=== PATIENT | female | born 1950 | race Caucasian/White ===

== ENCOUNTER 2016-04-01 13:45 | Outpatient (CLI) | payer MEDICARE, BC | END 2016-04-01 13:46 | disposition home or self-care (01) | DX: Z12.31 Encounter for screening mammogram for malignant neoplasm of breast (principal); Z80.3 Family history of malignant neoplasm of breast ==

== ENCOUNTER 2016-04-01 13:46 | Outpatient (CLI) | payer MEDICARE, BC | END 2016-04-01 13:47 | disposition home or self-care (01) | DX: M85.89 Other specified disorders of bone density and structure, multiple sites (principal); Z78.0 Asymptomatic menopausal state ==

== ENCOUNTER 2017-05-18 14:10 | Outpatient (CLI) | payer MEDICARE, BC ==
--- NOTE | 2017-05-19 13:16 | Mammography Report ---
DIGITAL SCREENING MAMMOGRAM: 05/18/2017 CLINICAL INDICATION: A 67-year-old with family history of breast cancer, for screening. COMPARISON: 03/2016, 09/2012, 06/2011, 06/2010. TECHNIQUE: Routine CC and MLO projections were obtained of the breasts. Bilateral laterally exaggerated craniocaudal views. FINDINGS: Scattered fibroglandular tissue is present within the breasts. There are no dominant masses, suspicious microcalcifications, or secondary signs of malignancy. In comparison to the previous studies, there are no significant changes. ASSESSMENT: NO MAMMOGRAPHIC EVIDENCE OF MALIGNANCY. NO SIGNIFICANT INTERVAL CHANGES. RECOMMENDATION: Screening mammography is recommended annually. BIRADS category 1 - negative. STANDARD QUALIFYING STATEMENTS: 1. This examination was reviewed with the aid of Computed-Aided Detection (CAD). 2. A negative or benign imaging report should not delay biopsy if clinically suspicious findings are present. Consider surgical consultation if warranted. More than 5% of cancers are not identified by imaging. 3. Dense breasts may obscure an underlying neoplasm. TD: 05/19/2017 13:16
== END 2017-05-18 14:11 | disposition home or self-care (01) ==
LOC: DI.S 14:10
PROVIDERS: ATTEND Internal Medicine
DX: Z12.31 Encounter for screening mammogram for malignant neoplasm of breast (principal); Z80.3 Family history of malignant neoplasm of breast
CPT/HCPCS: 77067

== ENCOUNTER 2017-09-29 11:30 | Outpatient (CLI) | payer MEDICARE, BC ==
[2017-09-29 17:37] LABS: ALBUMIN 3.8 g/dL (3.2-5.5); ALBUMIN/GLOBULIN RATIO 1.3 (1.0-2.2); BILIRUBIN,TOTAL 1.5 mg/dL (0.2-1.0); CALCIUM 9.2 mg/dL (8.5-10.3); CREATININE 0.9 mg/dL (0.4-1.0); TOTAL PROTEIN 6.7 g/dL (6.7-8.2)
[2017-09-29 18:52] LABS: BASOPHILS # (AUTO) 0.1 10^3/uL (0.0-0.1); BASOPHILS % (AUTO) 0.8 %; EOSINOPHILS # (AUTO) 0.4 10^3/uL (0.0-0.7); EOSINOPHILS % (AUTO) 5.5 %; HGB - HEMOGLOBIN 13.7 g/dL (12.0-16.0); LYMPHOCYTES % (AUTO) 53.5 %; MEAN CORPUSCULAR HEMOGLOBIN 31.3 pg (27.0-31.0); MEAN CORPUSCULAR HGB CONC 33.2 g/dL (32.0-36.0); MEAN CORPUSCULAR VOLUME 94.3 fL (81.0-99.0); MEAN PLATELET VOLUME 8.6 fL (7.9-10.8); MONOCYTES # (AUTO) 0.3 10^3/uL (0.0-1.0); MONOCYTES % (AUTO) 4.6 %; NEUTROPHILS # (AUTO) 2.7 10^3/uL (1.5-6.6); NEUTROPHILS % (AUTO) 35.6 %; PLT - PLATELET COUNT 214 10^3/uL (130-450); RED BLOOD COUNT 4.37 10^6/uL (4.20-5.40); RED CELL DISTRIBUTION WIDTH 13.4 % (12.0-15.0); WHITE BLOOD COUNT 7.4 x10^3/uL (4.8-10.8)
== END 2017-09-29 11:31 | disposition home or self-care (01) ==
LOC: LAB.F 11:30
PROVIDERS: ATTEND Nurse Practitioner Primary Care
DX: E55.9 Vitamin D deficiency, unspecified (principal); Z13.0 Encounter for screening for diseases of the blood and blood-forming organs and certain disorders involving the immune mechanism; Z13.1 Encounter for screening for diabetes mellitus; Z13.29 Encounter for screening for other suspected endocrine disorder
CPT/HCPCS: 36415; 80053; 82306; 84443; 85025

== ENCOUNTER 2017-11-20 21:08 | Outpatient (CLI) | payer MEDICARE, BC ==
--- NOTE | 2017-11-20 23:58 | XRAY Report ---
Reason: Left wrist pain Procedure Date: 11/20/2017 Accession Number: [id number] / [id number] Procedure: XR - Wrist 4 View LT CPT Code: FULL RESULT: EXAM: LEFT WRIST RADIOGRAPHY EXAM DATE: 11/20/2017 09:25 PM. CLINICAL HISTORY: Left wrist pain after fall 2 days ago. COMPARISON: None. TECHNIQUE: 4 views. FINDINGS: Left dorsal distal radial cortical buckling, could represent an acute impacted fracture versus chronic bony deformity. MR or CT could further evaluate as clinically indicated. No subluxation. Moderate first carpometacarpal osteoarthritis. IMPRESSION: Left dorsal distal radial cortical buckling, could represent an acute impacted fracture versus chronic bony deformity. MR or CT could further evaluate as clinically indicated. Moderate first carpometacarpal osteoarthritis. RADIA
== END 2017-11-20 21:09 | disposition home or self-care (01) ==
LOC: DI 21:08
PROVIDERS: ATTEND Nurse Practitioner Family
DX: M18.12 Unilateral primary osteoarthritis of first carpometacarpal joint, left hand (principal); M25.532 Pain in left wrist

== ENCOUNTER 2018-05-16 08:00 | Outpatient (CLI) | payer MEDICARE, BC | END 2018-05-16 23:59 | disposition home or self-care (01) | LOC: LAB.R 08:00 | PROVIDERS: ATTEND Physician Assistant Medical | DX: N39.0 Urinary tract infection, site not specified (principal) | CPT/HCPCS: 87086 ==

== ENCOUNTER 2018-06-29 16:19 | Outpatient (CLI) | payer MEDICARE, BC | END 2018-06-29 23:59 | disposition home or self-care (01) | LOC: LAB.R 16:19 | PROVIDERS: ATTEND Obstetrics & Gynecology | DX: N89.8 Other specified noninflammatory disorders of vagina (principal) | CPT/HCPCS: 87480; 87510; 87660 ==

== ENCOUNTER 2018-10-02 18:47 | Outpatient (CLI) | payer MEDICARE, BC ==
--- NOTE | 2018-10-04 11:31 | Ultrasound Report ---
Reason: PELVIC MASS Procedure Date: 10/02/2018 Accession Number: [id number] / [id number] Procedure: US - Pelvic Complete CPT Code: FULL RESULT: EXAM: PELVIC ULTRASOUND EXAM DATE: 10/02/2018 07:07 PM. CLINICAL HISTORY: Pelvic mass. COMPARISON: None. TECHNIQUE: Realtime transabdominal pelvic scan performed to identify the uterus and adnexa and as an overview of other pelvic structures, with static image documentation. FINDINGS: Examination is limited by absence of transvaginal technique. Uterus: 7.1 x 3.2 x 5.0 cm, volume 59 cc. Anteverted position. On limited transabdominal evaluation, myometrial echotexture is heterogeneous with a large echogenic coarse shadowing foci measuring up to 2.1 cm, likely coarse calcifications which are most often associated with fibroids. Masses: No discrete fibroids are identified on the limited exam. Endometrium: 7 mm. The endometrium is overall not well seen due to absence of transvaginal technique and aforementioned calcific shadow is obscuring large portions. Cervix: Unremarkable. Right Ovary: 1.8 x 1.8 x 1.7 cm, volume 3 cc. Normal echotexture and blood flow. Left Ovary: 1.7 x 1.3 x 1.6 cm, volume 1.9 cc. Normal echotexture and blood flow. Free Fluid: None. Other: None. IMPRESSION: Uterine calcifications, possibly fibroids, limited evaluation. Poorly visualized endometrium with suggestion of a thickness of 0.7 cm which would be greater than expected for normal in the postmenopausal state. Recommendation: Given the provided history of a pelvic mass, the findings should be compared to any available outside imaging. Transvaginal ultrasound is recommended. Depending on the clinical scenario and workup to date, pelvic MRI with and without contrast and/or CT abdomen and pelvis with intravenous contrast if non-gynecologic origin is suspected may additionally be warranted. RADIA
== END 2018-10-02 18:48 | disposition home or self-care (01) ==
LOC: DI 18:47
PROVIDERS: ATTEND Family Medicine
DX: R19.00 Intra-abdominal and pelvic swelling, mass and lump, unspecified site (principal); N85.8 Other specified noninflammatory disorders of uterus
CPT/HCPCS: 76856

== ENCOUNTER 2021-05-19 10:38 | Outpatient (CLI) | payer MEDICARE, BC | END 2021-05-19 10:39 | disposition home or self-care (01) | LOC: DI 10:38 | PROVIDERS: ATTEND Internal Medicine Cardiovascular Disease | DX: R00.2 Palpitations (principal); I51.7 Cardiomegaly; I87.8 Other specified disorders of veins; I65.23 Occlusion and stenosis of bilateral carotid arteries; E04.1 Nontoxic single thyroid nodule | CPT/HCPCS: 93306; 93880 ==

== ENCOUNTER 2021-05-19 10:39 | Outpatient (CLI) | payer MEDICARE, BC ==
--- NOTE | 2021-05-19 15:28 | Ultrasound Report ---
PROCEDURE: Carotid Doppler Complete INDICATIONS: LEFT SIDED CAROTID BRUIT TECHNIQUE: Color and pulse Doppler interrogation was performed of both carotid systems, with image documentation and velocity measurements. COMPARISON: None. FINDINGS: There is a predominantly cystic right thyroid nodule measuring 2.5 x 3.4 x 1.4 cm. Right side: Brachial blood pressure: 126/83 mm Hg. Common carotid artery peak systolic velocity: 89 cm/sec. Internal carotid artery peak systolic velocity: 126 cm/sec. Internal carotid artery end diastolic velocity: 46 cm/sec. External carotid artery peak systolic velocity: 83 cm/sec. ICA/CCA peak systolic ratio: 1.4 . Mathews scale imaging description: Mild diffuse plaque Percent internal carotid artery stenosis: Less than 50% . Vertebral artery: Flow direction is antegrade. Left side: Brachial blood pressure: 123/71 mm Hg. Common carotid artery peak systolic velocity: 96 cm/sec. Internal carotid artery peak systolic velocity: 80 cm/sec. Internal carotid artery end diastolic velocity: 34 cm/sec. External carotid artery peak systolic velocity: 71 cm/sec. ICA/CCA peak systolic ratio: 0.8 . Mathews scale imaging description: Mild diffuse plaque Percent internal carotid artery stenosis: Less than 50% . Vertebral artery: Flow direction is antegrade. IMPRESSION: 1. Mild diffuse plaque in both carotid arteries with no hemodynamically significant stenosis. 2. A predominantly cystic right thyroid nodule measures 2.5 x 3.4 x 1.4 cm. Recommend dedicated thyro id ultrasound. The estimate of stenosis included in the report of the imaging study was calculated using the NASCET method Reviewed by: Calderon Jain on 05/19/2021 3:26 PM PST Approved by: Calderon Jain on 05/19/2021 3:26 PM PST Station ID: [id number]
== END 2021-05-19 10:40 | disposition home or self-care (01) ==
LOC: DI 10:39
PROVIDERS: ATTEND Family Medicine
DX: I65.23 Occlusion and stenosis of bilateral carotid arteries (principal); E04.1 Nontoxic single thyroid nodule
CPT/HCPCS: 93880

== ENCOUNTER 2023-02-08 09:10 | Outpatient (CLI) | payer MEDICARE, BC | END 2023-02-08 09:11 | disposition critical access hospital (66) | LOC: EMS 09:10 | DX: R42 Dizziness and giddiness (principal); R11.0 Nausea; R06.02 Shortness of breath | CPT/HCPCS: A0425; A0429 ==

== ENCOUNTER 2023-02-08 09:45 | Emergency (ER) | payer MEDICARE, BC ==
[2023-02-08 10:44] LABS: BASOPHILS # (AUTO) 0.1 10^3/uL (0.0-0.1); BASOPHILS % (AUTO) 0.9 %; EOSINOPHILS # (AUTO) 0.2 10^3/uL (0.0-0.7); EOSINOPHILS % (AUTO) 3.4 %; HCT - HEMATOCRIT 43.9 % (37.0-47.0); HGB - HEMOGLOBIN 14.2 g/dL (12.0-16.0); LYMPHOCYTES # (AUTO) 2.7 10^3/uL (1.5-3.5); LYMPHOCYTES % (AUTO) 40.7 %; MEAN CORPUSCULAR HEMOGLOBIN 30.5 pg (27.0-31.0); MEAN CORPUSCULAR HGB CONC 32.3 g/dL (32.0-36.0); MEAN CORPUSCULAR VOLUME 94.4 fL (81.0-99.0); MEAN PLATELET VOLUME 9.8 fL (7.9-10.8); MONOCYTES # (AUTO) 0.3 10^3/uL (0.0-1.0); MONOCYTES % (AUTO) 3.9 %; NEUTROPHILS # (AUTO) 3.4 10^3/uL (1.5-6.6); PLT - PLATELET COUNT 241 10^3/uL (130-450); RED BLOOD COUNT 4.65 10^6/uL (4.20-5.40); RED CELL DISTRIBUTION WIDTH 12.7 % (12.0-15.0); WHITE BLOOD COUNT 6.7 x10^3/uL (4.8-10.8)
[2023-02-08 11:00] LABS: ALBUMIN 4.5 g/dL (3.2-5.5); ALBUMIN/GLOBULIN RATIO 1.9 (1.0-2.2); BILIRUBIN,TOTAL 1.2 mg/dL (0.2-1.0); CALCIUM 9.7 mg/dL (8.5-10.3); CREATININE 0.8 mg/dL (0.6-1.3); POTASSIUM 3.9 mmol/L (3.5-4.5); TOTAL PROTEIN 6.9 g/dL (6.4-8.9)
[2023-02-08 11:18] VITALS: BP 137/84
[2023-02-08] MEDS: SODIUM CHLORIDE 0.9% 1,000 ML IV STA (11:19)
[2023-02-08] MEDS: ONDANSETRON 4 MG/2 ML VIAL IVP STA (11:19)
--- NOTE | 2023-02-08 11:28 | CT Report ---
PROCEDURE: HEAD WO INDICATIONS: vertigo TECHNIQUE: Noncontrast 4.5 mm thick angled axial sections acquired from the foramen magnum to the vertex. For r adiation dose reduction, the following was used: automated exposure control, adjustment of mA and/or kV according to patient size. COMPARISON: None. FINDINGS: Image quality: Excellent. CSF spaces: Basal cisterns are patent. No extra-axial fluid collections. Ventricles are normal in size and shape. Brain: No midline shift. No intracranial masses or hemorrhage. Age-related global volume loss and mild chronic microvascular ischemic changes. Intracranial atherosclerotic vascular calcifications. Gr ay-white matter interface is normal. Skull and face: Calvarium and visualized facial bones are intact, without suspicious lesions. Bilat eral lens replacement. Sinuses: Visualized sinuses and mastoids are clear. IMPRESSION: No acute intracranial pathology. Reviewed by: Ceasar Calderón MD on 02/08/2023 11:26 AM PST Approved by: Ceasar Calderón MD on 02/08/2023 11:26 AM PST Station ID: [id number]
[2023-02-08] MEDS: ONDANSETRON ODT 4 MG TABLET TL STA (11:48)
[2023-02-08] MEDS: MECLIZINE 12.5 MG TABLET PO STA (11:48)
--- NOTE | 2023-02-08 12:00 | ED Physician Documentation ---
History of Present Illness - Stated complaint Stated Complaint: DIZZY - Chief complaint Chief Complaint: Neuro - History obtained from History obtained from: Patient, EMS - Additonal information Additional information: The patient comes to the emergency department chief complaint of vertigo that started a few hours ago. She woke up this morning and when she went to get up from bed she suddenly felt a very disorienting sensation that felt like her vertigo that she had previously but much much worse. She states she got very nauseated and ended up having to lay back down. She tried to rest, thinking that perhaps her Xanax and some cough medicine she taken the night before were reacting badly together, but she states that when she got up again later and she did not feel any better. She called for her to help her and ultimately, they decided to call the ambulance because her symptoms were more severe than her prior episodes. She states that when she has the feeling of vertigo, it looks like things are moving when she opens her eyes. The symptoms seem to come on with changes of position, especially getting up and down. The patient denies feeling ill with anything else recently. She states she is otherwise fairly healthy and does not take any medications for blood pressure. She has no history of diabetes or heart disease. She has a carotid bruit on the right and has on occasion noticed some throbbing/pulsating in her right ear in the evenings, especially when she lays down. Patient states she had a syncopal episode while out hiking about a year and a half ago and was extensively worked up for that but nobody was ever able to find out what had gone wrong. Patient denies any other complaints at this time. She states that currently, after an initial bout of vertigo and nausea upon arrival in the emergency department, she is now feeling a lot better than she was.No chest pain or shortness of breath. No fevers or chills. No abdominal pain. No recent head injury. She has developed some tinnitus in her left ear that predates this episode of vertigo. PD PAST MEDICAL HISTORY - Past Medical History Past Medical History: Yes Neuro: Fainting - Past Surgical History Past Surgical History: No - Present Medications Home Medications: Ambulatory Orders Medication Instructions Recorded Confirmed Meclizine HCl 50 mg PO Q6H PRN #30 tab 02/08/23 Ondansetron Odt [Zofran] 4 mg TL Q6H PRN #10 tablet 02/08/23 - Allergies Allergies/Adverse Reactions: Allergies Allergy/AdvReac Type Severity Reaction Status Date / Time No Known Drug Allergies Allergy Verified 02/08/23 11:05 - Social History Does the pt smoke?: No Smoking Status: Never smoker PD ED PE NORMAL - Vitals Vital signs reviewed: Yes - General General: Alert and oriented X 3, Well developed/nourished, Other (The patient appears somewhat uncomfortable on initial arrival but otherwise in no apparent distress.) - HEENT HEENT: Atraumatic, PERRL, EOMI, Moist mucous membranes - Neck Neck: Supple, no meningeal sign - Cardiac Cardiac: RRR, No murmur - Respiratory Respiratory: No respiratory distress, Clear bilaterally - Abdomen Abdomen: Soft, Non tender, Non distended - Derm Derm: Normal color, Warm and dry, No rash - Extremities Extremities: No deformity, No edema - Neuro Neuro: Alert and oriented X 3, desktop analyst 2-12 intact, No motor deficit, No sensory deficit, Normal speech, Other (No nystagmus.) - Psych Psych: Normal mood, Normal affect Results - Vitals Vitals: Vital Signs - 24 hr 02/08/23 02/08/23 09:56 11:04 Temperature 36.2 C L Heart Rate 58 L 60 Respiratory 18 18 Rate Blood Pressure 167/97 H 137/84 H O2 Saturation 100 100 Oxygen O2 Source Room air - Labs Labs: Laboratory Tests 02/08/23 02/08/23 10:39 10:39 WBC 6.7 RBC 4.65 Hgb 14.2 Hct 43.9 MCV 94.4 MCH 30.5 MCHC 32.3 RDW 12.7 Plt Count 241 MPV 9.8 Neut # (Auto) 3.4 Lymph # (Auto) 2.7 [place] # (Auto) 0.3 Eos # (Auto) 0.2 Baso # (Auto) 0.1 Absolute Nucleated RBC 0.00 Nucleated RBC % 0.0 Sodium 137 Potassium 3.9 Chloride 103 Carbon Dioxide 28 Anion Gap 6.0 BUN 11 Creatinine 0.8 Estimated GFR (MDRD) 70 L Glucose 111 H Calcium 9.7 Total Bilirubin 1.2 H AST 21 ALT 15 Alkaline Phosphatase 72 Total Protein 6.9 Albumin 4.5 Globulin 2.4 Albumin/Globulin Ratio 1.9 Lipase 19 - Rads (name of study) head CT Relevant Findings:: Final report received, See rad report (neg) PD Medical Decision Making - ED course Complexity details: reviewed results, re-evaluated patient, considered differential, d/w patient ED course: The patient initially stated that she thought she might be dehydrated and so I ordered an IV with fluids and IV Zofran, along with labs and head CT. However, just as the nurse was getting ready to start the IV, the patient stated that she did not want the IV and instead just wanted to have ODT Zofran and drink water. The patient did seem to have significant improvement in her symptoms since arriving in the emergency department and was actually able to get up while here. Head CT was unremarkable, as were laboratory studies. I felt the patient was stable for discharge home. She had taken a dose of ODT Zofran as well as a dose of meclizine here in the ED. I discussed with her that I feel that her vertigo is likely peripheral and ultimately, this will resolve on its own. We discussed the need for follow-up and the usual indications for return. Departure - Departure Disposition: 01 Home, Self Care Clinical Impression: Vertigo Condition: Stable Instructions: ED BPV Vertigo Prescriptions: Meclizine HCl 50 mg PO Q6H PRN #30 tab PRN Reason: Vertigo Ondansetron Odt [Zofran] 4 mg TL Q6H PRN #10 tablet PRN Reason: Nausea / Vomiting Comments: Your labs and head CT look good. You have declined to have an IV or IV fluids or IV medication today and as such, have been treated with oral meds. There is no evidence of an emergent cause of your symptoms at this time. Your symptoms are most consistent with benign positional vertigo, which can be very uncomfortable, but is a vertigo that comes from the peripheral nerves, not your brain and as such, is not life-threatening. The vertigo generally resolves on its own given some days to few weeks. You may take the medication for nausea and vertigo as needed if you have further symptoms that crop up during this time. A prescription has been provided for these. You may follow-up with your primary doctor and the ENT clinic if you wish further evaluation for this. Forms: PCP List
[2023-02-08 13:11] VITALS: O2SAT 94
== END 2023-02-08 13:09 | disposition home or self-care (01) ==
LOC: EDUNIT# → ED 09:45
DX: R42 Dizziness and giddiness (principal)
CPT/HCPCS: 36415; 70450; 80053; 83690; 85025; 99283; 99284; A9270; Q0162

== ENCOUNTER 2023-03-28 11:08 | Outpatient (CLI) | payer MEDICARE, BC ==
--- NOTE | 2023-03-29 16:48 | Mammography Report ---
BILATERAL DIGITAL SCREENING MAMMOGRAM 3D/2D WITH EXAGGERATED CC: 03/28/2023 CLINICAL: Routine screening. Family history of breast cancer. Comparison is made to exam dated: 05/18/2017 mammogram - [facility]. There are scattered areas of fibroglandular density in both breasts (category b / 25%-50% glandular t issue). No significant masses, calcifications, or other findings are seen in either breast. There has been no significant interval change. IMPRESSION: NEGATIVE There is no mammographic evidence of malignancy. A 1 year screening mammogram is recommended. Based on the Tyrer Cuzick model (a risk assessment model) the patients lifetime risk is 10.2% and he r 10 year risk is 10.2%. According to the ACR, ACS, and NCCN guidelines, an annual breast MRI exam al polly with mammogram is recommended if the patients lifetime risk is 20% or greater. This exam was interpreted at Station ID: [id number]. NOTE: For mammograms, a report in lay terms will be sent to the patient. Approximately 15% of breast malignancies will not be visualized mammographically. In the management of a palpable breast mass, a negative mammogram must not discourage biopsy of a clinically suspicious lesion. Electronically Signed By: Kye dodson/jessica:03/28/2023 12:42:41 letter sent: No_Letter ACR BI-RADS Category 1: Negative 3341F PARENCHYMAL PATTERN: (A) - The breast(s) demonstrate(s) scattered fibroglandular densities. BI-RADS CATEGORY: (1) - 1 Mammogram [id number] 1 year screening LATERALITY: (B)
== END 2023-03-28 11:09 | disposition home or self-care (01) ==
LOC: DI.S 11:08
DX: Z12.31 Encounter for screening mammogram for malignant neoplasm of breast (principal); Z80.3 Family history of malignant neoplasm of breast; R92.323 Mammographic fibroglandular density, bilateral breasts